=== PATIENT | male | born 1990 | race African-American/Black ===

== ENCOUNTER 2016-04-26 19:07 | Emergency (ER) | payer MEDICAID ==
[~2016-04-26] VITALS: Ht 160 cm; Wt 64.0 kg
[2016-04-26] MEDS ORDERED: KETOROLAC 60MG/2ML VIAL IM ONE (20:45)
[2016-04-26 21:00] VITALS: BP 109/62
[2016-04-26 21:32] LABS: MONOTEST NEGATIVE (NEGATIVE)
== END 2016-04-26 21:15 | disposition home or self-care (01) ==
LOC: ER 19:51
DX: B34.9 Viral infection, unspecified (principal); R59.1 Generalized enlarged lymph nodes
CPT/HCPCS: 86308; 87070; 87430; 99284; J1885

== ENCOUNTER 2016-06-24 11:11 | Emergency (ER) | payer MEDICAID ==
[~2016-06-24] VITALS: Ht 160 cm; Wt 64.0 kg
[2016-06-24] MEDS ORDERED: SODIUM CHLORIDE 0.9% 250 ML IV ONE (12:22)
[2016-06-24 14:14] LABS: BASOPHILS % 0.5 % (0.0-2.0); EOSINOPHILS % 6.2 % (0.0-5.0); HEMATOCRIT. 39.1 % (42.0-52.0); HEMOGLOBIN. 13.3 g/dL (14.0-18.0); LYMPHOCYTES % 55.9 % (20.0-50.0); MEAN CORPUSCULAR HEMOGLOBIN 28.7 pg (28.0-32.0); MEAN CORPUSCULAR VOLUME 84.7 fL (80.0-94.0); MEAN PLATELET VOLUME 9.7 fl (7.4-10.4); MONOCYTES % 7.2 % (2.0-8.0); NEUTROPHILS % 30.2 % (40.0-76.0); PLATELET 127 x1000/uL (130-400); RED BLOOD CELL COUNT 4.62 mill/uL (4.7-6.1); RED CELL DISTRIBUTION WIDTH 12.9 % (11.6-14.6)
[2016-06-24 14:23] LABS: CARBON DIOXIDE 29 mEq/L (21-32); CHLORIDE 108 mEq/L (98-107)
[2016-06-24 15:11] LABS: CLARITY URINE TURBID (CLEAR); COLOR URINE DARK YELLOW (YELLOW); GLUCOSE URINE NEGATIVE (NEGATIVE); KETONES URINE NEGATIVE (NEGATIVE); LEUKOCYTE ESTERASE URINE NEGATIVE (NEGATIVE); NITRITE URINE NEGATIVE (NEGATIVE); OCCULT BLOOD URINE NEGATIVE (NEGATIVE); PH URINE 8.5 (4.5-8.0); PROTEIN URINE NEGATIVE (NEGATIVE); SPECIFIC GRAVITY URINE 1.017 (1.005-1.030); UROBILINOGEN URINE 0.2 E.U./dL (0.2-1.0)
[2016-06-24 17:10] VITALS: BP 110/64
== END 2016-06-24 17:45 | disposition home or self-care (01) ==
LOC: ER 12:52
DX: R55 Syncope and collapse (principal); F12.10 Cannabis abuse, uncomplicated
CPT/HCPCS: 36415; 71010; 80053; 81001; 82962; 85025; 93005; 96360; 96361; 99285; J7030; Z7610; J7050

== ENCOUNTER 2017-06-22 11:19 | Emergency (ER) | payer MEDICAID ==
[~2017-06-22] VITALS: Ht 162.6 cm; Wt 64.0 kg
[2017-06-22 11:25] VITALS: BP 105/65
[2017-06-22] MEDS ORDERED: ACETAMINOPHEN 325MG TABLET PO ONE (11:45)
== END 2017-06-22 12:07 | disposition home or self-care (01) ==
LOC: ER 11:32
DX: J06.9 Acute upper respiratory infection, unspecified (principal)
CPT/HCPCS: 99282

== ENCOUNTER 2019-03-05 23:13 | Emergency (ER) | payer OTHER ==
[~2019-03-05] VITALS: Ht 162.6 cm; Wt 68.0 kg
[2019-03-05 23:41] VITALS: BP 124/77
== END 2019-03-06 02:47 | disposition left against medical advice (07) ==
LOC: ER 23:13
DX: Z53.21 Procedure and treatment not carried out due to patient leaving prior to being seen by health care provider (principal)
CPT/HCPCS: 93005

== ENCOUNTER 2020-05-31 20:59 | Emergency (ER) | payer OTHER ==
[~2020-05-31] VITALS: Ht 157.5 cm; Wt 66.0 kg
[2020-05-31] MEDS ORDERED: IBUPROFEN 600MG TABLET PO STA (23:21)
[2020-05-31] MEDS ORDERED: SODIUM CHLORIDE 0.9% 1,000 ML IV ONE (23:30)
[2020-06-01 00:12] LABS: CLARITY URINE CLEAR (CLEAR); COLOR URINE DARK YELLOW (YELLOW); KETONES URINE 1+ (NEGATIVE); LEUKOCYTE ESTERASE URINE NEGATIVE (NEGATIVE); NITRITE URINE NEGATIVE (NEGATIVE); OCCULT BLOOD URINE NEGATIVE (NEGATIVE); PROTEIN URINE NEGATIVE (NEGATIVE); SPECIFIC GRAVITY URINE 1.017 (1.005-1.030); UROBILINOGEN URINE 0.2 E.U./dL (0.2-1.0)
[2020-06-01 01:01] LABS: CHLORIDE 103 mEq/L (98-107)
[2020-06-01 01:03] LABS: BASOPHILS % 0.3 % (0.0-2.0); HEMATOCRIT. 42.4 % (42.0-52.0); HEMOGLOBIN. 14.3 g/dL (14.0-18.0); LYMPHOCYTES % 10.3 % (20.0-50.0); MEAN CORPUSCULAR HEMOGLOBIN 28.9 pg (28.0-32.0); MEAN CORPUSCULAR VOLUME 85.6 fL (80.0-94.0); MEAN PLATELET VOLUME 9.9 fl (7.4-10.4); MONOCYTES % 5.6 % (2.0-8.0); NEUTROPHILS % 83.8 % (40.0-76.0); PLATELET 144 x1000/uL (130-400); RED BLOOD CELL COUNT 4.96 mill/uL (4.7-6.1); RED CELL DISTRIBUTION WIDTH 12.9 % (11.6-14.6)
[2020-06-01 02:30] VITALS: BP 112/68
[2020-06-01] MEDS ORDERED: IBUP-2028 MT (03:29)
== END 2020-06-01 04:55 | disposition home or self-care (01) ==
LOC: ER 20:59
DX: M79.18 Myalgia, other site (principal); M54.5 Low back pain; R50.9 Fever, unspecified; R53.1 Weakness; R35.0 Frequency of micturition
CPT/HCPCS: 36415; 71045; 80053; 81003; 85025; 93005; 96360; 96361; 99285; J7030